=== PATIENT | male | born 1985 | race Caucasian/White ===

== ENCOUNTER 2017-08-02 03:03 | Emergency (ER) | payer OTHER ==
[~2017-08-02] VITALS: Ht 175.3 cm; Wt 90.7 kg
[2017-08-02 03:10] VITALS: BP 145/60
--- NOTE | 2017-08-02 03:34 | NUR ---
PT AMB W/O ASST TO ER BED 3
[2017-08-02 03:40] VITALS: BP 145/60
--- NOTE | 2017-08-02 03:40 | NUR ---
PATIENT PRESENTS TO ED WITH C/O CHEST PAIN WHILE HAVING AN ERECION AND ANXIETY. PT DENIES N/V/D; SKIN IS PINK/WARM/DRY; AAOX4 WITH EVEN AND STEADY GAIT; LUNGS CLEAR BL; HR EVEN AND REGULAR; PT DENIES ANY FEVER, SOB, OR COUGH AT THIS TIME; PATIENT STATES PAIN OF 6/10 AT THIS TIME; VSS; PATIENT POSITIONED FOR COMFORT; HOB ELEVATED; BEDRAILS UP X2; BED DOWN. ER MD MADE AWARE OF PT STATUS.
--- NOTE | 2017-08-02 04:56 | NUR ---
Patient discharged with v/s stable. Written and verbal after care instructions given and explained. Patient verbalized understanding. Ambulatory with steady gait. All questions addressed prior to discharge. Advised to follow up with PMD.
== END 2017-08-02 04:55 | disposition home or self-care (01) ==
LOC: MED 03:03
DX: F41.9 Anxiety disorder, unspecified (principal)
CPT/HCPCS: 93005; 99283